=== PATIENT | male | born 2000 | race Caucasian/White ===

== ENCOUNTER 2023-08-23 13:05 | Emergency (ER) | payer BC, SELFPAY ==
[2023-08-23 13:19] VITALS: BP 128/93
--- NOTE | 2023-08-23 13:50 | ED.GENMED ---
History of Present Illness
General
Chief Complaint: Skin Problem
Time Seen by Provider: 08/23/23 13:39
Travel History
Have you had any contact with someone who has COVID-19?: No
Do you have any symptoms of coronavirus? Fever > 100 degrees, chills, cough, shortness of breath, sore throat, loss of taste or smell, muscle aches, or headache?: No
History of Present Illness
History of Present Illness:
22-year-old previously healthy male presents to the emergency department for evaluation of large abrasions to the base of the right foot, states [place]. He neglected to seek medical care
yesterday but awoke with pain in the right foot and noticed a black discoloration. Denies any numbness. Minimal pain at rest. No fevers or chills. Last tetanus was greater than 10 years ago, adamantly refuses any further tetanus updates
Past History
Past History
ED Past Medical History: Psychiatric (Anxiety)
ED Past Surgical History: Orthopedic (Left ACL repair 07/02/[address] Jeb Cates-orthopedics)
Social History
Tobacco: Non-smoker
Alcohol: None
Drug: Marijuana
Review of Systems
Review of Systems
Allergies reviewed?: Yes
All Other Systems: ROS reviewed and negative except as documented in HPI and ROS
Phy Exam
Physical Exam
Physical Exam:
GEN: Well appearing, NAD, WDWN
HEENT: Oral mucosa moist, no scleral icterus
Cardiac: Regular rate
Lung: No respiratory distress, no tachypnea
MSK: Skin tear to the plantar right foot associated with previous callus, copious foreign bodies and debris in the superficial wound, no active bleeding, no erythema or tenderness
Skin: Good color, no pallor or jaundice, no rashes
Neuro: AO x3, moves all extremities freely
Psych: Calm, cooperative
Course
Orders/Labs/Results
Orders:
Orders
08/23/23 13:50
Lidocaine/Epinephrine/Tetracai [Let Topical Anesthetic Gel] 6 ml TOPICAL NOW STA
Vital Signs
Initial and Last Documented VS:
Initial Vital Signs
Temp Pulse Resp BP Pulse Ox
98.0 F 110 16 128/93 98
08/23/23 13:19 08/23/23 13:19 08/23/23 13:19 08/23/23 13:19 08/23/23 13:19
Last Documented Vital Signs
Temp Pulse Resp BP Pulse Ox
98.0 F 110 16 128/93 98
08/23/23 13:19 08/23/23 13:19 08/23/23 13:19 08/23/23 13:19 08/23/23 13:19
MDM/Problems Addressed
MDM/Problems Addressed:
The wound was irrigated copiously and scrubbed with chlorhexidine, maximal amount of foreign bodies removed to the patient's tolerance even with topical anesthetic. No evidence of active infection but certainly local contamination is concerning for
secondary infection. Will cover with oral antibiotics, supportive care discussed. Patient vehemently refused tetanus update
*Critical Care Note
Total Time (30-74mins, 75-104mins- exclusive of procedures): Not Applicable
ED Attending Note
-
Portions of this chart may have been created with voice recognition software.� Occasional wrong word or��sound alike� substitutions may have occurred due to the inherent limitations of voice recognition software.
Discharge Plan
Departure
Patient Disposition: Home (Routine Discharge)
Date of Disposition: 08/23/23
Time of Disposition: 14:30
Patient with high blood pressure during this ER visit?: No
Discharge Problem:
Abrasion of foot, right
Instructions: Wound Care (DC)
Prescriptions:
New
cephalexin 500 mg capsule
500 mg PO TID 5 Days Qty: 15 0RF
No Action
diclofenac sodium 75 MG tablet,delayed release (DR/EC)
75 mg PO BID Qty: 14 0RF
Referrals:
Alon Shine MD [Family Provider] -
Activity Restrictions/Additional Instructions:
Soak foot in warm soapy water daily for 20 minutes
Clean daily in shower with regular soap
Keep covered for at least 1 week, changing bandages daily
If the foot becomes swollen or increasingly pain, return to the ER
Interventions
Interventions:
*Risk Screen - Suicide Last Done: 08/23/23 14:10
*General Assessment Last Done: 08/23/23 14:10
*Neglect/Abuse Screening Last Done: 08/23/23 14:10
*ED COVID-19 Vaccine History Last Done: 08/23/23 13:19
*Nursing Disposition Last Done: 08/23/23 14:45
ED-Skin Assessment Last Done: 08/23/23 14:10
Discharge Date and Time
Discharge Date/Time: 08/23/23 14:46
[2023-08-23] MEDS: LET TOPICAL ANESTHETIC GEL 6 ML TOPICAL (13:54)
== END 2023-08-23 14:46 | disposition home or self-care (01) ==
LOC: EMR 13:05
PROVIDERS: EMERGENCY PHYSICIAN Emergency Medicine; FAMILY PHYSICIAN Family Medicine
DX: S90.811A Abrasion, right foot, initial encounter (principal); X58.XXXA Exposure to other specified factors, initial encounter; Y93.01 Activity, walking, marching and hiking; F41.9 Anxiety disorder, unspecified
CPT/HCPCS: 99282